=== PATIENT | female | born 1970 | race Caucasian/White ===

== ENCOUNTER 2018-04-28 19:04 | Emergency (ER) | payer OTHER ==
[~2018-04-28] VITALS: Ht 165.1 cm; Wt 63.5 kg
--- NOTE | ~2018-04-28 | EKG ---
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
[2018-04-28] MEDS ORDERED: KEPPRA 500 MG500 M1 PO ×2 (19:16→19:17)
[2018-04-28] MEDS ORDERED: GABADONE CAPSU1 EAC1 PO (19:18)
[2018-04-28] MEDS ORDERED: CLONAZEPAM 1 MG1 M1 PO (19:19)
[2018-04-28] MEDS ORDERED: TOPAMAX50 MG PO (19:19)
[2018-04-28] MEDS ORDERED: PRINIVIL20 MG PO (19:19)
[2018-04-28] MEDS ORDERED: RESTORIL30 MG PO (19:20)
[2018-04-28] MEDS ORDERED: PLAVIX 75 MG TA75 M1 PO (19:20)
[2018-04-28 19:33] LABS: ABSOLUTE NEUTROPHILS 2.4 thou/uL (1.4-8.2); EOSINOPHILS 3.7 % (0.0-3.0); HEMATOCRIT 39.3 % (37.0-47.0); HEMOGLOBIN 13.2 gm/dL (12.0-15.0); LYMPHOCYTES 46.8 % (24.0-44.0); MCH 30.9 pg (26.0-34.0); MCHC 33.5 g/dL (28.0-37.0); MCV 92.3 fL (80.0-100.0); MONOCYTES 6.9 % (1.0-8.0); PLATELET COUNT 191 thou/uL (150-400); POLYS 41.6 % (36.0-66.0); RBC 4.26 mil/uL (4.20-5.00); RDW 14.2 % (10.5-14.5); WBC 5.8 thou/uL (4.0-11.0)
[2018-04-28 19:39] LABS: CALCIUM 8.6 mg/dL (8.5-10.1); CREATININE 0.9 mg/dL (0.6-1.0); POTASSIUM 3.4 mmol/L (3.5-5.1)
[2018-04-28 19:45] LABS: MAGNESIUM 2.2 mg/dL (1.8-2.4)
[2018-04-28 21:07] LABS: URINE BILIRUBIN NEGATIVE (Negative); URINE BLOOD TRACE (Negative); URINE CLARITY SL CLOUDY; URINE COLOR YELLOW; URINE GLUCOSE-RANDOM* NEGATIVE (Negative); URINE KETONES NEGATIVE (Negative); URINE LEUKOCYTES-REFLEX NEGATIVE (Negative); URINE NITRITE-REFLEX NEGATIVE (Negative); URINE PROTEIN (DIPSTICK) NEGATIVE (Negative); URINE SPECIFIC GRAVITY 1.015 (1.005-1.035); URINE UROBILINOGEN 0.2 E.U./dl (0.2-1.0)
[2018-04-28 21:15] LABS: AMP/METHAMP Negative (Negative); BARBITURATES Negative (Negative); BENZODIAZEPINES POSITIVE (Negative); COCAINE Negative (Negative); METHADONE Negative (Negative); OPIATES Negative (Negative); PCP Negative (Negative)
== END 2018-04-28 22:06 | disposition home or self-care (01) ==
LOC: ER 19:04
PROVIDERS: Emergency Medicine
DX: R56.9 Unspecified convulsions (principal); Z88.6 Allergy status to analgesic agent; Z88.8 Allergy status to other drugs, medicaments and biological substances; Z86.73 Personal history of transient ischemic attack (TIA), and cerebral infarction without residual deficits

== ENCOUNTER 2018-09-01 01:54 | Emergency (ER) | payer OTHER ==
[~2018-09-01] VITALS: Ht 162.6 cm; Wt 45.4 kg
[~2018-09-01 01:54] MED LIST: CLONAZEPAM 1 MG1 M1 PO; GABADONE CAPSU1 EAC1 PO; KEPPRA 500 MG500 M1 PO; PLAVIX 75 MG TA75 M1 PO; PRINIVIL20 MG PO; RESTORIL30 MG PO; TOPAMAX50 MG PO
[2018-09-01 03:37] VITALS: BP 107/59
== END 2018-09-01 03:38 | disposition home or self-care (01) ==
LOC: ER 01:54
DX: G40.909 Epilepsy, unspecified, not intractable, without status epilepticus (principal); Q28.2 Arteriovenous malformation of cerebral vessels; Z88.8 Allergy status to other drugs, medicaments and biological substances

== ENCOUNTER 2018-09-02 20:40 | Emergency (ER) | payer OTHER ==
[~2018-09-02] VITALS: Ht 162.6 cm; Wt 46.7 kg
[2018-09-02 21:13] LABS: ABSOLUTE NEUTROPHILS 4.1 thou/uL (1.4-8.2); BASOPHILS 0.8 % (0.0-2.0); EOSINOPHILS 3.9 % (0.0-3.0); HEMATOCRIT 37.2 % (37.0-47.0); HEMOGLOBIN 11.9 gm/dL (12.0-15.0); LYMPHOCYTES 33.8 % (24.0-44.0); MCH 30.1 pg (26.0-34.0); MCV 94.1 fL (80.0-100.0); MONOCYTES 7.2 % (1.0-8.0); PLATELET COUNT 194 thou/uL (150-400); POLYS 54.3 % (36.0-66.0); RBC 3.95 mil/uL (4.20-5.00); RDW 15.1 % (10.5-14.5); WBC 7.5 thou/uL (4.0-11.0)
[2018-09-02 21:17] LABS: CALCIUM 8.4 mg/dL (8.5-10.1); POTASSIUM 4.1 mmol/L (3.5-5.1)
[2018-09-02 23:22] LABS: URINE BILIRUBIN NEGATIVE (Negative); URINE BLOOD NEGATIVE (Negative); URINE CLARITY CLEAR; URINE COLOR YELLOW; URINE GLUCOSE-RANDOM* NEGATIVE (Negative); URINE KETONES NEGATIVE (Negative); URINE LEUKOCYTES-REFLEX NEGATIVE (Negative); URINE NITRITE-REFLEX NEGATIVE (Negative); URINE PROTEIN (DIPSTICK) NEGATIVE (Negative); URINE UROBILINOGEN 0.2 E.U./dl (0.2-1.0)
[2018-09-02 23:31] LABS: AMP/METHAMP Negative (Negative); BARBITURATES Negative (Negative); BENZODIAZEPINES POSITIVE (Negative); COCAINE Negative (Negative); METHADONE Negative (Negative); OPIATES Negative (Negative); PCP Negative (Negative)
[2018-09-02 23:49] VITALS: BP 126/96
[2018-09-03] MEDS ORDERED: BUTALB-APAP-CA1 EACH PO (00:03)
--- NOTE | 2018-09-03 08:08 | EKG ---
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 : 1970 Requested By: Trevin Perez Order Number: [id number] MD: Morro Cherry Measurements Intervals [place] Rate: 97 P: 66 MS: 167 QRS: 32 QRSD: 76 T: 64 QT: 349 QTc: 444 Interpretive Statements Sinus rhythm Compared to ECG 04/28/2018 19:17:11 No significant changes Electronically Signed On 09-03-2018 8:08:08 CDT by Morro Cherry [email or web address] ��������������������������������������������� <ELECTRONICALLY SIGNED> ���������������������������������������� By: Morro Cherry MD ��������������������������������������������� 09/03/18807 48 48 Morro Cherry MD /NILSA
== END 2018-09-03 | disposition home or self-care (01) ==
LOC: ER 20:40
PROVIDERS: Emergency Medicine
DX: R56.9 Unspecified convulsions (principal); F17.210 Nicotine dependence, cigarettes, uncomplicated; Z88.6 Allergy status to analgesic agent; Z88.8 Allergy status to other drugs, medicaments and biological substances; Z86.73 Personal history of transient ischemic attack (TIA), and cerebral infarction without residual deficits

== ENCOUNTER 2018-10-29 03:21 | Emergency (ER) | payer OTHER ==
[~2018-10-29] VITALS: Ht 162.6 cm; Wt 47.6 kg
[~2018-10-29 03:21] MED LIST changes: +BUTALB-APAP-CA1 EACH PO
[2018-10-29 03:48] LABS: HEMATOCRIT 42.1 % (37.0-47.0); HEMOGLOBIN 13.9 gm/dL (12.0-15.0); MCH 30.2 pg (26.0-34.0); MCV 91.6 fL (80.0-100.0); RBC 4.59 mil/uL (4.20-5.00); RDW 13.8 % (10.5-14.5); WBC 5.8 thou/uL (4.0-11.0)
[2018-10-29 03:56] LABS: ANION GAP 11 mmol/L (7-16); BUN 22 mg/dL (7-18); CHLORIDE 108 mmol/L (98-107); CO2 24 mmol/L (21-32); CREATININE 0.9 mg/dL (0.6-1.0); GLUCOSE 103 mg/dL (74-106); POTASSIUM 4.1 mmol/L (3.5-5.1); SODIUM 143 mmol/L (136-145)
[2018-10-29 04:04] LABS: SGOT 13 U/L (15-37); SGPT 14 U/L (30-65); TOTAL BILIRUBIN < 0.1 mg/dL (<0.1-1.0); TOTAL PROTEIN 7.4 g/dL (6.4-8.2)
[2018-10-29 04:18] LABS: URINE BILIRUBIN NEGATIVE (Negative); URINE BLOOD NEGATIVE (Negative); URINE CLARITY CLEAR; URINE COLOR YELLOW; URINE GLUCOSE-RANDOM* NEGATIVE (Negative); URINE KETONES NEGATIVE (Negative); URINE LEUKOCYTES-REFLEX NEGATIVE (Negative); URINE NITRITE-REFLEX NEGATIVE (Negative); URINE PROTEIN (DIPSTICK) NEGATIVE (Negative); URINE SPECIFIC GRAVITY 1.015 (1.005-1.035); URINE UROBILINOGEN 0.2 E.U./dl (0.2-1.0)
[2018-10-29] MEDS ORDERED: NORCO 5-325 TA1 EACH PO (06:38)
[2018-10-29] MEDS ORDERED: ZOFRAN4 MG PO (06:41)
[2018-10-29 06:53] VITALS: BP 88/61
== END 2018-10-29 06:54 | disposition home or self-care (01) ==
LOC: ER 03:21
PROVIDERS: Student in an Organized Health Care Education/Training Program
DX: N20.0 Calculus of kidney (principal); R11.2 Nausea with vomiting, unspecified; F17.210 Nicotine dependence, cigarettes, uncomplicated; Z88.8 Allergy status to other drugs, medicaments and biological substances; Z88.6 Allergy status to analgesic agent; Z86.73 Personal history of transient ischemic attack (TIA), and cerebral infarction without residual deficits

== ENCOUNTER 2018-10-31 16:45 | Emergency (ER) | payer OTHER ==
[~2018-10-31] VITALS: Ht 162.6 cm; Wt 47.6 kg
[~2018-10-31 16:45] MED LIST changes: +NORCO 5-325 TA1 EACH PO; +ZOFRAN4 MG PO
[2018-10-31 17:19] LABS: ABSOLUTE NEUTROPHILS 2.2 thou/uL (1.4-8.2); HEMATOCRIT 46.2 % (37.0-47.0); HEMOGLOBIN 15.1 gm/dL (12.0-15.0); LYMPHOCYTES 44.9 % (24.0-44.0); MCHC 32.7 g/dL (28.0-37.0); MCV 91.8 fL (80.0-100.0); MONOCYTES 6.4 % (1.0-8.0); PLATELET COUNT 189 thou/uL (150-400); POLYS 44.7 % (36.0-66.0); RBC 5.04 mil/uL (4.20-5.00); RDW 13.5 % (10.5-14.5); WBC 4.8 thou/uL (4.0-11.0)
[2018-10-31 17:19] LABS: URINE BILIRUBIN NEGATIVE (Negative); URINE BLOOD NEGATIVE (Negative); URINE CLARITY CLEAR; URINE COLOR YELLOW; URINE GLUCOSE-RANDOM* NEGATIVE (Negative); URINE KETONES NEGATIVE (Negative); URINE LEUKOCYTES-REFLEX NEGATIVE (Negative); URINE NITRITE-REFLEX NEGATIVE (Negative); URINE PROTEIN (DIPSTICK) NEGATIVE (Negative); URINE SPECIFIC GRAVITY <= 1.005 (1.005-1.035); URINE UROBILINOGEN 0.2 E.U./dl (0.2-1.0)
[2018-10-31 17:34] LABS: CALCIUM 9.2 mg/dL (8.5-10.1); CREATININE 1.1 mg/dL (0.6-1.0); POTASSIUM 3.3 mmol/L (3.5-5.1)
[2018-10-31] MEDS ORDERED: PROMS25 WY RECTAL (19:14)
[2018-10-31] MEDS ORDERED: NORCO 5-325 TA1 EACH PO (19:14)
[2018-10-31 20:25] VITALS: BP 102/76
== END 2018-10-31 20:28 | disposition home or self-care (01) ==
LOC: ER 16:45
PROVIDERS: Nurse Practitioner Family
DX: R10.9 Unspecified abdominal pain (principal); R11.2 Nausea with vomiting, unspecified; F17.210 Nicotine dependence, cigarettes, uncomplicated; Z88.6 Allergy status to analgesic agent; Z88.8 Allergy status to other drugs, medicaments and biological substances; Z86.73 Personal history of transient ischemic attack (TIA), and cerebral infarction without residual deficits

== ENCOUNTER 2018-12-23 12:12 | Emergency (ER) | payer OTHER ==
[~2018-12-23] VITALS: Ht 152.4 cm; Wt 40.8 kg
[~2018-12-23 12:12] MED LIST changes: +PROMS25 WY RECTAL
[2018-12-23] MEDS ORDERED: ONDANSETRON HCL4 M2 PO (12:27)
[2018-12-23 14:12] VITALS: BP 90/57
== END 2018-12-23 14:12 | disposition home or self-care (01) ==
LOC: ER 12:12
DX: S09.8XXA Other specified injuries of head, initial encounter (principal); M25.511 Pain in right shoulder; F17.210 Nicotine dependence, cigarettes, uncomplicated; Z88.8 Allergy status to other drugs, medicaments and biological substances; W18.2XXA Fall in (into) shower or empty bathtub, initial encounter; Y93.89 Activity, other specified; Y92.89 Other specified places as the place of occurrence of the external cause; Y99.8 Other external cause status